=== PATIENT | male | born 1980 | race American Indian/Alaskan Native ===

== ENCOUNTER 2017-12-13 00:51 | Inpatient (IN) | payer OTHER ==
[2017-12-13] MEDS ORDERED: NACL 0.9% 1000 ML 1,000 ML ONE ×4 (01:09→06:32)
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
[2017-12-13 01:11] LABS: Basophils % (Auto) 0.5 % (0.0-1.8); Eosinophils # (Auto) 0.1 K/mm3 (0.0-0.4); Eosinophils % (Auto) 0.8 % (0.0-4.3); Hematocrit 36.7 % (35.5-45.6); Hemoglobin 12.3 gm/dl (11.8-15.2); Lymphocytes # (Auto) 2.3 K/mm3 (1.2-5.4); Lymphocytes % (Auto) 29.1 % (13.4-35.0); Mean Corpuscular HGB Conc 34 % (32-34); Mean Corpuscular Hemoglobin 32 pg (28-32); Mean Corpuscular Volume 94 fl (84-94); Monocytes # (Auto) 0.6 K/mm3 (0.0-0.8); Monocytes % (Auto) 7.4 % (0.0-7.3); Platelet Count 251 K/mm3 (140-440); Red Cell Distribution Width 13.8 % (13.2-15.2)
[2017-12-13 01:28] LABS: INR 0.91 (0.87-1.13)
[2017-12-13 01:29] LABS: Alanine Aminotransferase 17 units/L (7-56); Albumin 3.8 g/dL (3.9-5); BUN/Creatinine Ratio 9; Blood Urea Nitrogen 12 mg/dL (9-20); Calcium 8.1 mg/dL (8.4-10.2); Hemolysis Index 10; Partial Thromboplastin Time 25.2 Sec. (24.2-36.6)
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
[2017-12-13] MEDS ORDERED: ANCEF ONE ×2 (03:16→04:29)
[2017-12-13] MEDS ORDERED: ZOFRAN IV PRN ×2 (03:21→06:45)
[2017-12-13] MEDS ORDERED: DILAUDID IV PRN (03:21)
--- NOTE | 2017-12-13 03:21 | Anesthesia Consultation ---
Anesthesia Consult and Med Hx Date of service: 12/13/17 - Airway Anesthetic Teeth Evaluation: Poor ROM Head & Neck: Adequate Mental/Hyoid Distance: Adequate Mallampati Class: Class II Intubation Access Assessment: Probably Good - Pulmonary Exam CTA: Yes - Cardiac Exam Cardiac Exam: RRR - Pre-Operative Health Status ASA Pre-Surgery Classification: ASA2, Emergency Proposed Anesthetic Plan: General - Pulmonary Hx Smoking: Yes - Cardiovascular System Hx Hypertension: No - Endocrine Hx Renal Disease: No Hx Non-Insulin Dependent Diabetes: No - Other Systems Hx Obesity: No
--- NOTE | 2017-12-13 03:21 | Anesthesia Day of Surgery ---
Anesthesia Day of Surgery - Day of Surgery Patient Examined: Yes Patient H&P Reviewed: Yes Patient is NPO: Yes
[2017-12-13] MEDS ORDERED: DIPRIVAN 10 MG/ML IV ONE (03:25)
[2017-12-13] MEDS ORDERED: ZEMURON IV ONE ×2 (03:25→05:06)
[2017-12-13] MEDS ORDERED: XYLOCAINE MPF 2% ONE (03:25)
[2017-12-13] MEDS ORDERED: QUELICIN ONE (03:25)
[2017-12-13] MEDS ORDERED: ceFAZolin 2 GM in NACL 0.9% 100 ML IV ONE (03:31)
[2017-12-13] MEDS ORDERED: THROMBIN (BOVINE) TP ONE ×2 (04:41→05:40)
[2017-12-13] MEDS ORDERED: HEPARIN 10,000 UNITS/10 ML IV ONE (04:41)
[2017-12-13] MEDS ORDERED: GELFOAM TP ONE ×2 (04:41→05:40)
[2017-12-13] MEDS ORDERED: NACL 0.9% 500 ML IRRIGATION ONE (04:41)
[2017-12-13] MEDS ORDERED: MARCAINE-EPI 0.5%-1:200,000 INFILTRATI ONE (04:51)
[2017-12-13] MEDS ORDERED: HEPARIN 10,000 UNITS/10 ML ONE (04:52)
[2017-12-13] MEDS ORDERED: NITROGLYCERIN SYRINGE 3 ML ONE ×2 (04:52→05:26)
[2017-12-13] MEDS ORDERED: NACL 0.9% 500 ML 500 ML ONE (05:01)
[2017-12-13] MEDS ORDERED: BACTROBAN 2% ONE (05:45)
[2017-12-13] MEDS ORDERED: ROBINUL ONE (06:17)
[2017-12-13] MEDS ORDERED: NEOSTIGMINE ONE (06:17)
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
[2017-12-13] MEDS ORDERED: DULCOLAX PR PRN (06:45)
[2017-12-13] MEDS ORDERED: MORPHINE IV PRN (06:45)
[2017-12-13] MEDS ORDERED: MILK OF MAGNESIA PO PRN (06:45)
[2017-12-13] MEDS: PLAVIX PO SCH (07:44)
[2017-12-13] MEDS: NORCO 5/325 PO PRN ×2 (07:47→17:28)
--- NOTE | 2017-12-13 07:51 | Post Anesthesia Evaluation ---
- Post Anesthesia Evaluation Patient Participated: Yes Airway Patent: Yes Stable Respiratory Function: Yes Nausea/Vomiting: No Temp > 96.8F: Yes Pain Manageable: Yes Adequeate Hydration: Yes Anesthesia Complications: No Block Receding Appropriately: Not Applicable Patient on Ventilator: No
[2017-12-13] MEDS: NACL 0.9% 1000 ML 1,000 ML IV SCH ×2 (10:07→19:47)
[2017-12-13] MEDS: PEPCID PO SCH ×2 (10:08→21:21)
[2017-12-13] MEDS: COLACE PO SCH ×2 (10:08→21:21)
[2017-12-13] MEDS: MORPHINE IV PRN ×3 (10:11→21:22)
[2017-12-13] MEDS ORDERED: ceFAZolin 1 GM in NACL 0.9% 100 ML IV SCH (14:00)
[2017-12-13] MEDS: ceFAZolin 1 GM in NACL 0.9% 20 ML IV SCH ×2 (14:16→21:29)
[2017-12-13] MEDS: TYLENOL PO PRN (19:48)
[2017-12-14] MEDS: ceFAZolin 1 GM in NACL 0.9% 20 ML IV SCH ×3 (05:24→21:54)
[2017-12-14] MEDS: NACL 0.9% 1000 ML 1,000 ML IV SCH ×2 (05:26→19:50)
[2017-12-14] MEDS: MORPHINE IV PRN ×3 (05:30→19:51)
[2017-12-14 07:02] LABS: Basophils % (Auto) 0.4 % (0.0-1.8); Eosinophils # (Auto) 0.1 K/mm3 (0.0-0.4); Eosinophils % (Auto) 1.6 % (0.0-4.3); Hematocrit 26.4 % (35.5-45.6); Hemoglobin 9.1 gm/dl (11.8-15.2); Lymphocytes # (Auto) 1.5 K/mm3 (1.2-5.4); Lymphocytes % (Auto) 23.1 % (13.4-35.0); Mean Corpuscular HGB Conc 34 % (32-34); Mean Corpuscular Hemoglobin 32 pg (28-32); Mean Corpuscular Volume 93 fl (84-94); Monocytes # (Auto) 0.8 K/mm3 (0.0-0.8); Monocytes % (Auto) 11.8 % (0.0-7.3); Platelet Count 165 K/mm3 (140-440); Red Blood Count 2.85 M/mm3 (3.65-5.03)
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
[2017-12-14] MEDS: PEPCID PO SCH ×2 (10:30→21:48)
[2017-12-14] MEDS: COLACE PO SCH ×2 (10:31→21:48)
[2017-12-14] MEDS: PLAVIX PO SCH (10:31)
[2017-12-14] MEDS: TYLENOL PO PRN (14:51)
[2017-12-14] MEDS: NORCO 5/325 PO PRN (21:51)
[2017-12-15] MEDS: MORPHINE IV PRN ×3 (00:13→09:17)
[2017-12-15] MEDS: ceFAZolin 1 GM in NACL 0.9% 20 ML IV SCH (06:33)
[2017-12-15] MEDS: NORCO 5/325 PO PRN (06:38)
[2017-12-15 08:54] VITALS: BP 102/68
[2017-12-15] MEDS: PEPCID PO SCH (09:18)
[2017-12-15] MEDS: COLACE PO SCH (09:18)
[2017-12-15] MEDS: PLAVIX PO SCH (09:18)
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
== END 2017-12-15 12:32 | disposition home or self-care (01) | DRG 903 ==
LOC: ED 00:51 → OR 04:15 → 3B-SURG 06:45
PROVIDERS: ADMIT Surgery Vascular Surgery; ATTEND Surgery Vascular Surgery
PROC: 04CL0ZZ Extirpation of Matter from Left Femoral Artery, Open Approach (ICD-10-PCS; principal; 2017-12-13)
PROC: 0JBM0ZZ Excision of Left Upper Leg Subcutaneous Tissue and Fascia, Open Approach (ICD-10-PCS; 2017-12-13)
PROC: 04QL0ZZ Repair Left Femoral Artery, Open Approach (ICD-10-PCS; 2017-12-13)
PROC: 0QT70ZZ Resection of Left Upper Femur, Open Approach (ICD-10-PCS; 2017-12-13)
PROC: 0KXR0ZZ Transfer Left Upper Leg Muscle, Open Approach (ICD-10-PCS; 2017-12-13)
DX: S75.002A Unspecified injury of femoral artery, left leg, initial encounter (principal); W34.09XA Accidental discharge from other specified firearms, initial encounter; Y93.89 Activity, other specified; Y92.89 Other specified places as the place of occurrence of the external cause; Y99.8 Other external cause status; S81.801A Unspecified open wound, right lower leg, initial encounter; Z87.891 Personal history of nicotine dependence
CPT/HCPCS: 36415; 70450; 70486; 71045; 72125; 75635; 80053; 80320; 85025; 85610; 85730; 86850; 86900; 86901; 93005; 93010; 96374; 96375; A4649; C1757; G0480; J0330; J0690; J1170; J1644; J2270; J2704; J2710; J7030; J7040; Q9967